=== PATIENT | male | born 1995 | race African-American/Black ===

== ENCOUNTER 2018-12-24 16:57 | Emergency (ER) | payer SELFPAY ==
[~2018-12-24] VITALS: Ht 182.9 cm; Wt 81.6 kg
[2018-12-24 17:15] VITALS: BP 126/75
[2018-12-24] MEDS ORDERED: Lidocaine 1% MPF 10mg/ml 5ml INJ ONE (17:15)
--- NOTE | 2018-12-24 17:15 | NUR ---
ED Nurse Note: pt walked in to ED due to burning urination for 3 days. pt denies any discharge or swelling. AAO x4. respirations even and non-labored noted. will wait for the further order.
[2018-12-24] MEDS ORDERED: DOXYCYCLINE MO100 MG ORAL (17:16)
[2018-12-24] MEDS ORDERED: ACYCLOVIR400 MG ORAL (17:16)
[2018-12-24 17:40] LABS: APPEARANCE,URINE CLEAR; BILIRUBIN, URINE NEGATIVE (NEGATIVE); COLOR,URINE PALE YELLOW; GLUCOSE, URINE (UA) NEGATIVE (NEGATIVE); KETONES,URINE 2+ (NEGATIVE); LEUKOCYTE ESTERASE ,URINE NEGATIVE (NEGATIVE); NITRITE,URINE NEGATIVE (NEGATIVE); PH,URINE 7 (4.5-8.0); PROTEIN,URINE NEGATIVE (NEGATIVE); UROBILINOGEN,URINE NORMAL MG/DL (0.0-1.0)
[2018-12-24 17:44] VITALS: BP 126/75
--- NOTE | 2018-12-24 17:47 | NUR ---
ER DISCHARGE NOTE: Patient is cleared to be discharged per ERMD, pt is aox4, on room air, with stable vital signs. pt was given dc and prescription instructions, pt was able to verbalize understanding, pt id band removed. pt is able to ambulate with steady gait. pt took all belongings.
--- NOTE | 2018-12-24 19:40 | Emergency Room Report ---
History of Present Illness General Chief Complaint: Male Urogenital Problems Source: Patient Present Illness HPI Patient is a 23-year-old male presented after increased dysuria and urinary frequency. Patient a prior history of recent unprotected sex. He reports having prior history of herpes exposure. He denies any genital lesions or testicular swelling. He denies any fever or vomiting. He denies any flank pain. He had been having increased pain with urination. This is primarily at the end of stream. Allergies: Coded Allergies: No Known Allergies (Unverified , 12/24/18) Patient History Past Medical History: see triage record Reviewed Nursing Documentation: PMH: Agreed; PSxH: Agreed Nursing Documentation-PMH Past Medical History: No Stated History Review of Systems All Other Systems: negative except mentioned in HPI Physical Exam Vital Signs Date Time Temp Pulse Resp B/P (MAP) Pulse Ox O2 Delivery O2 Flow Rate FiO2 12/24/18 17:01 98.1 68 20 126/75 (92) 97 Room Air General Appearance: well appearing, no apparent distress, alert, GCS 15 Head: normocephalic, atraumatic ENT: hearing grossly normal, normal voice Neck: full range of motion, supple Respiratory: normal inspection, no respiratory distress, speaking full sentences Cardiovascular #1: normal inspection Musculoskeletal: no calf tenderness Neurologic: normal gait Psychiatric: mood/affect normal Skin: no rash Medical Decision Making Diagnostic Impression: Primary Impression: Urethritis ER Course Patient presented for dysuria. Differential diagnosis include was not limited to urethritis, appendicitis, herpes among others. Patient has a benign exam and does not appear to require any further imaging or laboratory testing at this time. Patient was noted to have what appears to be a urethritis. Patient will be empirically treated for sexual transmitted infection. Patient was advised to follow-up for definitive testing with outpatient clinic. Patient is advised to return if he has any worsening condition or other concerns. Labs Test 12/24/18 17:25 Urine Color Pale yellow Urine Appearance Clear Urine pH 7 (4.5-8.0) Urine Specific [place] 1.010 (1.005-1.035) Urine Protein Negative (NEGATIVE) Urine Glucose (UA) Negative (NEGATIVE) Urine Ketones 2+ (NEGATIVE) Urine Blood Negative (NEGATIVE) Urine Nitrite Negative (NEGATIVE) Urine Bilirubin Negative (NEGATIVE) Urine Urobilinogen Normal MG/DL (0.0-1.0) Urine Leukocyte Esterase Negative (NEGATIVE) Last Vital Signs Date Time Temp Pulse Resp B/P (MAP) Pulse Ox O2 Delivery O2 Flow Rate FiO2 12/24/18 17:44 98.1 68 20 126/75 97 Room Air Status: improved Disposition: HOME, SELF-CARE Condition: Stable Scripts Acyclovir* (ACYCLOVIR*) 400 Mg Tablet 400 MG ORAL FIVE TIMES A DAY, #35 TAB Prov: Tay Rider MD 12/24/18 Doxycycline Monohydrate* (DOXYCYCLINE MONOHYDRATE*) 100 Mg Capsule 100 MG ORAL Q12H, #20 CAP 0 Refills Prov: Tay Rider MD 12/24/18 Referrals: NOT CHOSEN IPA/,REFERRING (PCP) Patient Instructions: Urethritis, Adult Tay Rider MD Dec 24, 2018 19:40
== END 2018-12-24 17:49 | disposition home or self-care (01) ==
LOC: EMR 17:11
DX: N34.2 Other urethritis (principal)
CPT/HCPCS: 81003; 96372; 99283; J0696